=== PATIENT | male | born 1970 | race American Indian/Alaskan Native ===

== ENCOUNTER 2016-06-10 19:40 | Emergency (ER) | payer SELFPAY ==
[2016-06-10 20:48] VITALS: BP 137/93
--- NOTE | 2016-06-10 21:36 | Emergency Department Report ---
Chief Complaint: Dental/Oral Stated Complaint: EAR/MOUTH PAIN, FEET SWELLING Time Seen by Provider: 06/10/16 21:27 - HPI History of Present Illness: Patient presents with left tooth pain that he states is radiating to his left ear. He admits to dizziness, swelling in bilateral lower extremities. Denies chest pain, sob and yuly. He also admits to gout flare in right heal. - ROS Review of Systems: All other systems unremarkable except documentation in HPI - Exam Vital Signs: Vital Signs 06/10/16 20:42 Temperature 98.2 F Pulse Rate 56 L Respiratory 20 Rate Blood Pressure 137/93 O2 Sat by Pulse 98 Oximetry Physical Exam: Gen: Male well-developed and nourished, no apparent distress noted, ambulatory. Cardiovascular: Heart sounds present S1-S2, no murmur, gallop, edema or ectopy noted, 2+ pulses upper and lower extremities Respiratory: Chest symmetry with respirations, lungs clear to auscultate upper and lower lobes, respirations even and unlabored, no rales, rhonchi, crackles noted. Psych: AxOx3, answers questions appropriately, mood full range, affect normal, normal speech and tone. MSE screening note: Focused history and physical exam performed. Due to findings the following was ordered: seen by provider, laboratory and radiology studies ordered, and to go to main ED to be seen by physician ED Medical Decision Making - Medical Decision Making seen by provider, laboratory and radiology studies ordered, and to go to main ED to be seen by physician ED Disposition for MSE Condition: Stable Referrals: PRIMARY CAREMD [Primary Care Provider] - 3-5 Days
[2016-06-10 22:22] LABS: Basophils % (Auto) 0.6 % (0.0-1.8); Eosinophils % (Auto) 4.1 % (0.0-4.3); Hematocrit 40.7 % (35.5-45.6); Hemoglobin 13.8 gm/dl (11.8-15.2); Mean Corpuscular HGB Conc 34 % (32-34); Mean Corpuscular Hemoglobin 32 pg (28-32); Mean Corpuscular Volume 93 fl (84-94); Platelet Count 216 K/mm3 (140-440); Red Blood Count 4.36 M/mm3 (3.65-5.03); Red Cell Distribution Width 15.1 % (13.2-15.2); White Blood Count 9.7 K/mm3 (4.5-11.0)
[2016-06-10 22:38] LABS: Alanine Aminotransferase 27 units/L (7-56); Albumin 3.9 g/dL (3.9-5); Albumin/Globulin Ratio 1.2 %; Alkaline Phosphatase 63 units/L (35-129); Anion Gap 15 mmol/L; BUN/Creatinine Ratio 15.55; Bilirubin,Total 0.2 mg/dL (0.1-1.2); Blood Urea Nitrogen 14 mg/dL (9-20); Carbon Dioxide 28 mmol/L (22-30); Chloride 98.8 mmol/L (98-107); Glucose 104 mg/dL (75-100); Potassium 3.9 mmol/L (3.6-5.0); Sodium 138 mmol/L (137-145); Total Protein 7.2 g/dL (6.3-8.2)
[2016-06-10 23:08] LABS: Uric Acid 10.7 mg/dL (3.5-7.6)
[2016-06-11 00:24] LABS: Bilirubin,Urine NEG (Negative); Blood,Urine SM (Negative); Ketones,Urine NEG (Negative); Leukocyte Esterase,Urine NEG (Negative); Mucus,Urine FEW /HPF; Nitrite,Urine NEG (Negative); Urobilinogen,Urine < 2.0 mg/dL (<2.0)
== END 2016-06-11 05:40 | disposition left against medical advice (07) ==
LOC: ED 19:40
DX: K13.79 Other lesions of oral mucosa (principal); Z53.21 Procedure and treatment not carried out due to patient leaving prior to being seen by health care provider
CPT/HCPCS: 36415; 80053; 81001; 84484; 84550; 85025; 93005; 93010

== ENCOUNTER 2017-07-30 23:59 | Inpatient (IN) | payer OTHER ==
[2017-07-31] MEDS ORDERED: NACL 0.9% 1000 ML 1,000 ML IV ONE ×2 (00:21→02:23)
[2017-07-31] MEDS ORDERED: ZOFRAN IV ONE (00:48)
[2017-07-31] MEDS ORDERED: PROTONIX IV ONE (00:48)
[2017-07-31 00:51] LABS: Hematocrit 28.1 % (35.5-45.6); Hemoglobin 9.5 gm/dl (11.8-15.2); Mean Corpuscular HGB Conc 34 % (32-34); Mean Corpuscular Hemoglobin 32 pg (28-32); Mean Corpuscular Volume 95 fl (84-94); Platelet Count 232 K/mm3 (140-440); Red Blood Count 2.95 M/mm3 (3.65-5.03); Red Cell Distribution Width 15.6 % (13.2-15.2)
--- NOTE | 2017-07-31 00:55 | Emergency Department Report ---
ED GI Bleed HPI - General Chief complaint: GI Bleed Stated complaint: GI BLEED Time Seen by Provider: 07/31/17 00:43 Source: patient, EMS Mode of arrival: Stretcher Limitations: No Limitations - History of Present Illness Initial comments: Patient is 46 years old male with history of hypertension. Patient presented to the ER complaining OF epigastric pain and vomiting coffee ground emesis and passing dark stool. Patient stated that his symptoms started yesterday. He also reported that he was diagnosed with peptic ulcer before. He denied any fever, chest pain or shortness of breath. Patient initial blood pressure in the ER is 82/52. IV lines immediately inserted and IV fluids started. MD complaint: coffee ground emesis, melena -: Last night Location: epigastric Radiation: none Consistency: intermittent Associated Symptoms: abdominal pain, nausea, vomiting - Related Data Previous Rx's Medication Instructions Recorded Last Taken Type Amoxicillin/K Clav Tab [Augmentin 1 tab PO Q12HR #20 tab 11/25/15 Unknown Rx 875 mg] Cyclobenzaprine [Flexeril] 10 mg PO TID PRN #20 tablet 11/25/15 Unknown Rx Ibuprofen [Motrin 800 MG tab] 800 mg PO Q8HR PRN #30 tablet 11/25/15 Unknown Rx Lisinopril [Zestril TAB] 20 mg PO QDAY #30 tablet 11/25/15 Unknown Rx Losartan [Cozaar] 50 mg PO QDAY #30 tablet 11/25/15 Unknown Rx Allergies Allergy/AdvReac Type Severity Reaction Status Date / Time No Known Allergies Allergy Verified 06/10/16 20:47 ED Review of Systems ROS: Stated complaint: GI BLEED Other details as noted in HPI Comment: All other systems reviewed and negative ENT: denies: throat pain Respiratory: denies: cough, orthopnea, shortness of breath, SOB with exertion Cardiovascular: denies: chest pain, palpitations Gastrointestinal: abdominal pain, nausea, vomiting, melena ED Past Medical Hx - Past Medical History Previous Medical History?: Yes Hx Hypertension: Yes Hx CVA: No Hx Heart Attack/AMI: No Hx Congestive Heart Failure: No Hx Diabetes: No Hx Deep Vein Thrombosis: No Hx Pulmonary Embolism: No Hx GERD: Yes Hx Liver Disease: No Hx Renal Disease: No Hx Sickle Cell Disease: No Hx Arthritis: Yes (GOUT) Hx Headaches / Migraines: No Hx Seizures: No Hx Kidney Stones: No Hx Psychiatric Treatment: No Hx Asthma: No Hx COPD: No Hx Tuberculosis: No Hx Dementia: No Hx HIV: No - Surgical History Past Surgical History?: Yes Hx Coronary Stent: Yes Hx Open Heart Surgery: No Hx Pacemaker: No Hx Internal Defibrillator: No Hx Cholecystectomy: No Hx Appendectomy: No Hx Breast Surgery: No - Social History Smoking Status: Former Smoker Substance Use Type: Prescribed - Medications Home Medications: Home Medications Medication Instructions Recorded Confirmed Last Taken Type Amoxicillin/K Clav Tab [Augmentin 1 tab PO Q12HR #20 tab 11/25/15 Unknown Rx 875 mg] Cyclobenzaprine [Flexeril] 10 mg PO TID PRN #20 tablet 11/25/15 Unknown Rx Ibuprofen [Motrin 800 MG tab] 800 mg PO Q8HR PRN #30 tablet 11/25/15 Unknown Rx Lisinopril [Zestril TAB] 20 mg PO QDAY #30 tablet 11/25/15 Unknown Rx Losartan [Cozaar] 50 mg PO QDAY #30 tablet 11/25/15 Unknown Rx ED Physical Exam - General Limitations: No Limitations General appearance: alert, in no apparent distress - Head Head exam: Present: atraumatic, normocephalic - ENT ENT exam: Present: mucous membranes dry - Neck Neck exam: Present: normal inspection, full ROM. Absent: tenderness, meningismus, lymphadenopathy - Respiratory Respiratory exam: Present: normal lung sounds bilaterally. Absent: respiratory distress, wheezes, rales, rhonchi, stridor, accessory muscle use, decreased breath sounds, prolonged expiratory - Cardiovascular Cardiovascular Exam: Present: regular rate, normal rhythm, normal heart sounds - GI/Abdominal GI/Abdominal exam: Present: soft, tenderness (epigastric tenderness), normal bowel sounds. Absent: distended, guarding, rebound, rigid, organomegaly, mass, bruit, pulsatile mass, hernia - Extremities Exam Extremities exam: Present: normal inspection, full ROM, normal capillary refill - Back Exam Back exam: Present: normal inspection, full ROM - Neurological Exam Neurological exam: Present: alert, oriented X3, CN II-XII intact, normal gait - Skin Skin exam: Present: warm, intact, normal color ED Course Vital Signs 07/31/17 00:01 Temperature 97.8 F Pulse Rate 77 Respiratory 16 Rate Blood Pressure 82/52 O2 Sat by Pulse 100 Oximetry - Reevaluation(s) Reevaluation #1: 07/31/17 02:26 Patient blood pressure improved after 1 L of fluids. I discussed the patient is Dr. Conner Soliman from gastroenterology. Dr. Soliman advised to admit the patient to the hospitalists, keep patient nothing by mouth for possible endoscopy in the morning. ED Medical Decision Making - Lab Data Result diagrams: 07/31/17 00:26 07/31/17 00:26 - Medical Decision Making I discussed the patient with Dr. Mittal, he agreed to admit the patient to his service. Critical Care Time: Yes Critical care time in (mins) excluding proc time.: 30 Critical care attestation.: If time is entered above; I have spent that time in minutes in the direct care of this critically ill patient, excluding procedure time. ED Disposition Clinical Impression: GI bleed, Hypotension due to blood loss Disposition: OP ADMIT IP TO THIS HOSP Is pt being admited?: Yes Condition: Stable Forms: Accompanied Note
[2017-07-31] MEDS ORDERED: PROTONIX 80 MG in NACL 0.9% 100 ML IV SCH (01:00)
[2017-07-31 01:04] LABS: INR 0.99 (0.87-1.13)
[2017-07-31 01:05] LABS: Partial Thromboplastin Time 25.8 Sec. (24.2-36.6)
[2017-07-31 01:36] LABS: Alanine Aminotransferase 24 units/L (7-56); Albumin 3.2 g/dL (3.9-5); BUN/Creatinine Ratio 48; Blood Urea Nitrogen 48 mg/dL (9-20); Calcium 7.9 mg/dL (8.4-10.2); Hemolysis Index 6; Lipase 18 units/L (13-60)
[2017-07-31 04:39] LABS: Anisocytosis 1+; Band Neutrophils # (Manual) 0.2 K/mm3; Basophils % (Manual) 0 % (0.0-1.8); Monocytes % (Manual) 0 % (0.0-7.3); Stomatocytes Rare; Total Cells Counted 100
--- NOTE | 2017-07-31 09:00 | Gastroenterology Consultation ---
<SUSHIL JAMISON BLOSSOM - Last Filed: 07/31/17 08:52> History of Present Illness - Reason for Consult Consult date: 07/31/17 Melena Requesting physician: SONJA CHUA - History of Present Illness Mr. Cullen is a 46 y/o male admitted for a 1 week hx of melena with associated N/V, CGE, and back pain. The patient does note chronic back pain. He endorses taking baby ASA daily along with ibuprofen, and Aleve for leg cramping and back pain for several months. He denies abdominal pain. He has weakness and fatigue. No prior GI hx. No prior EGD. He states he has had an irregular HR in the past and underwent LHC with no intervention/ medical management. He has a hx of HTN. Currently on a PPI gtt. Past History Past Medical History: hypertension Past Surgical History: No surgical history Social history: , lives with family. denies: alcohol abuse Family history: hypertension Medications and Allergies Allergies Allergy/AdvReac Type Severity Reaction Status Date / Time No Known Allergies Allergy Verified 06/10/16 20:47 Home Medications Medication Instructions Recorded Confirmed Last Taken Type Lisinopril [Zestril TAB] 20 mg PO QDAY #30 tablet 11/25/15 07/31/17 Unknown Rx Losartan [Cozaar] 50 mg PO QDAY #30 tablet 11/25/15 07/31/17 Unknown Rx Furosemide [Lasix] 20 mg PO QDAY 07/31/17 07/31/17 Unknown History Active Meds: Active Medications Pantoprazole Sodium 80 mg/ (Sodium Chloride) 100 mls @ 10 mls/hr IV DIRECT SAMIR Last Admin: 07/31/17 01:23 Dose: 8 mg/hr, 10 mls/hr Review of Systems - Review of Systems All systems: negative Constitutional: fatigue, weakness Cardiovascular: shortness of breath Gastrointestinal: nausea, vomiting, coffee ground emesis, melena Exam - Constitutional Vital Signs: Temp Pulse Resp BP Pulse Ox 97.8 F 100 H 22 122/69 99 07/31/17 00:01 07/31/17 08:30 07/31/17 08:30 07/31/17 08:30 07/31/17 04:45 General appearance: no acute distress - EENT Eyes: EOM intact ENT: hearing intact - Neck Neck: supple - Respiratory Respiratory: bilateral: CTA - Cardiovascular Rhythm: regular Extremities: pulses intact - Gastrointestinal General gastrointestinal: Present: soft, non-tender, normal bowel sounds - Integumentary Integumentary: Present: warm, dry - Neurologic Neurological: alert and oriented x3 - Psychiatric Psychiatric: appropriate mood/affect, cooperative - Labs CBC & Chem 7: 07/31/17 00:26 07/31/17 00:26 Lab Results: Laboratory Results - last 24 hr 07/31/17 07/31/17 07/31/17 00:26 00:26 00:26 WBC 15.1 H RBC 2.95 L Hgb 9.5 L Hct 28.1 L MCV 95 H MCH 32 MCHC 34 RDW 15.6 H Plt Count 232 Lymph # Utility Worker Add Manual Diff Complete Total Counted 100 Seg Neuts % (Manual) 86.0 H Band Neutrophils % 1.0 Lymphocytes % (Manual) 11.0 L Reactive Lymphs % (Man) 0 Monocytes % (Manual) 0 Eosinophils % (Manual) 2.0 Basophils % (Manual) 0 Metamyelocytes % 0 Myelocytes % 0 Promyelocytes % 0 Blast Cells % 0 Nucleated RBC % Not Reportable Seg Neutrophils # Man 13.0 H Band Neutrophils # 0.2 Lymphocytes # (Manual) 1.7 Abs React Lymphs (Man) 0.0 Monocytes # (Manual) 0.0 Eosinophils # (Manual) 0.3 Basophils # (Manual) 0.0 Metamyelocytes # 0.0 Myelocytes # 0.0 Promyelocytes # 0.0 Blast Cells # 0.0 WBC Morphology Not Reportable Hypersegmented Neuts Not Reportable Hyposegmented Neuts Not Reportable Hypogranular Neuts Not Reportable Smudge Cells Not Reportable Toxic Granulation Not Reportable Toxic Vacuolation Not Reportable Dohle Bodies Not Reportable Pelger-Huet Anomaly Not Reportable Marty Rods Not Reportable Platelet Estimate Appears normal Clumped Platelets Not Reportable Plt Clumps, EDTA Not Reportable Large Platelets Not Reportable Giant Platelets Not Reportable Platelet Satelliting Not Reportable Plt Morphology Comment Not Reportable RBC Morphology Not Reportable Dimorphic RBCs Not Reportable Polychromasia Not Reportable Hypochromasia Not Reportable Poikilocytosis Not Reportable Anisocytosis 1+ Microcytosis Not Reportable Macrocytosis Not Reportable Spherocytes Not Reportable Pappenheimer Bodies Not Reportable Sickle Cells Not Reportable Target Cells Not Reportable Tear Drop Cells Not Reportable Ovalocytes Not Reportable Stomatocytes Rare Helmet Cells Not Reportable [place] Bodies Not Reportable [place] Rings Not Reportable [place] Cells Not Reportable Bite Cells Not Reportable Crenated Cell Not Reportable Elliptocytes Not Reportable Acanthocytes (Spur) Not Reportable Rouleaux Not Reportable Hemoglobin C Crystals Not Reportable Schistocytes Not Reportable Malaria parasites Not Reportable Charlie Bodies Not Reportable Hem Pathologist Commnt No PT 13.6 INR 0.99 APTT 25.8 Sodium 141 Potassium 4.0 Chloride 106.1 Carbon Dioxide 21 L Anion Gap 18 BUN 48 H Creatinine 1.0 Estimated GFR > 60 BUN/Creatinine Ratio 48 Glucose 132 H Calcium 7.9 L Total Bilirubin < 0.20 AST 19 ALT 24 Alkaline Phosphatase 40 Total Protein 5.7 L Albumin 3.2 L Albumin/Globulin Ratio 1.3 Lipase 18 Blood Type Antibody Screen 07/31/17 00:28 WBC RBC Hgb Hct MCV MCH MCHC RDW Plt Count Lymph # Add Manual Diff Total Counted Seg Neuts % (Manual) Band Neutrophils % Lymphocytes % (Manual) Reactive Lymphs % (Man) Monocytes % (Manual) Eosinophils % (Manual) Basophils % (Manual) Metamyelocytes % Myelocytes % Promyelocytes % Blast Cells % Nucleated RBC % Seg Neutrophils # Man Band Neutrophils # Lymphocytes # (Manual) Abs React Lymphs (Man) Monocytes # (Manual) Eosinophils # (Manual) Basophils # (Manual) Metamyelocytes # Myelocytes # Promyelocytes # Blast Cells # WBC Morphology Hypersegmented Neuts Hyposegmented Neuts Hypogranular Neuts Smudge Cells Toxic Granulation Toxic Vacuolation Dohle Bodies Pelger-Huet Anomaly Marty Rods Platelet Estimate Clumped Platelets Plt Clumps, EDTA Large Platelets Giant Platelets Platelet Satelliting Plt Morphology Comment RBC Morphology Dimorphic RBCs Polychromasia Hypochromasia Poikilocytosis Anisocytosis Microcytosis Macrocytosis Spherocytes Pappenheimer Bodies Sickle Cells Target Cells Tear Drop Cells Ovalocytes Stomatocytes Helmet Cells [place] Bodies [place] Rings [place] Cells Bite Cells Crenated Cell Elliptocytes Acanthocytes (Spur) Rouleaux Hemoglobin C Crystals Schistocytes Malaria parasites Charlie Bodies Hem Pathologist Commnt PT INR APTT Sodium Potassium Chloride Carbon Dioxide Anion Gap BUN Creatinine Estimated GFR BUN/Creatinine Ratio Glucose Calcium Total Bilirubin AST ALT Alkaline Phosphatase Total Protein Albumin Albumin/Globulin Ratio Lipase Blood Type O POSITIVE Antibody Screen Negative Assessment and Plan 1. Melena 2 .CGE 3. NSAID use -Continue PPI gtt. NPO -No NSAIDS or blood thinning meds -H/H stable, BUN elevated -Pt reports taking baby ASA, Ibuprofen, Aleve daily -EGD today. -Hypotension is improving. B/P currently 122/68-S/P fluid bolus. -Further recommendations to follow EGD <MICHAEL DIAZ R - Last Filed: 07/31/17 11:01> Medications and Allergies Active Meds: Active Medications Pantoprazole Sodium 80 mg/ (Sodium Chloride) 100 mls @ 10 mls/hr IV DIRECT SAMIR Last Admin: 07/31/17 01:23 Dose: 8 mg/hr, 10 mls/hr Sodium Chloride (Nacl 0.9% 1000 Ml) 1,000 mls @ 50 mls/hr IV DIRECT SAMIR Last Admin: 07/31/17 10:22 Dose: 50 mls/hr Exam - Constitutional Vital Signs: Temp Pulse Resp BP Pulse Ox 99.2 F 89 12 97/53 98 07/31/17 10:18 07/31/17 10:18 07/31/17 10:18 07/31/17 10:18 07/31/17 10:18 - Labs CBC & Chem 7: 07/31/17 00:26 07/31/17 00:26 Lab Results: Laboratory Results - last 24 hr 07/31/17 07/31/17 07/31/17 00:26 00:26 00:26 WBC 15.1 H RBC 2.95 L Hgb 9.5 L Hct 28.1 L MCV 95 H MCH 32 MCHC 34 RDW 15.6 H Plt Count 232 Lymph # Utility Worker Add Manual Diff Complete Total Counted 100 Seg Neuts % (Manual) 86.0 H Band Neutrophils % 1.0 Lymphocytes % (Manual) 11.0 L Reactive Lymphs % (Man) 0 Monocytes % (Manual) 0 Eosinophils % (Manual) 2.0 Basophils % (Manual) 0 Metamyelocytes % 0 Myelocytes % 0 Promyelocytes % 0 Blast Cells % 0 Nucleated RBC % Not Reportable Seg Neutrophils # Man 13.0 H Band Neutrophils # 0.2 Lymphocytes # (Manual) 1.7 Abs React Lymphs (Man) 0.0 Monocytes # (Manual) 0.0 Eosinophils # (Manual) 0.3 Basophils # (Manual) 0.0 Metamyelocytes # 0.0 Myelocytes # 0.0 Promyelocytes # 0.0 Blast Cells # 0.0 WBC Morphology Not Reportable Hypersegmented Neuts Not Reportable Hyposegmented Neuts Not Reportable Hypogranular Neuts Not Reportable Smudge Cells Not Reportable Toxic Granulation Not Reportable Toxic Vacuolation Not Reportable Dohle Bodies Not Reportable Pelger-Huet Anomaly Not Reportable Marty Rods Not Reportable Platelet Estimate Appears normal Clumped Platelets Not Reportable Plt Clumps, EDTA Not Reportable Large Platelets Not Reportable Giant Platelets Not Reportable Platelet Satelliting Not Reportable Plt Morphology Comment Not Reportable RBC Morphology Not Reportable Dimorphic RBCs Not Reportable Polychromasia Not Reportable Hypochromasia Not Reportable Poikilocytosis Not Reportable Anisocytosis 1+ Microcytosis Not Reportable Macrocytosis Not Reportable Spherocytes Not Reportable Pappenheimer Bodies Not Reportable Sickle Cells Not Reportable Target Cells Not Reportable Tear Drop Cells Not Reportable Ovalocytes Not Reportable Stomatocytes Rare Helmet Cells Not Reportable [place] Bodies Not Reportable [place] Rings Not Reportable [place] Cells Not Reportable Bite Cells Not Reportable Crenated Cell Not Reportable Elliptocytes Not Reportable Acanthocytes (Spur) Not Reportable Rouleaux Not Reportable Hemoglobin C Crystals Not Reportable Schistocytes Not Reportable Malaria parasites Not Reportable Charlie Bodies Not Reportable Hem Pathologist Commnt No PT 13.6 INR 0.99 APTT 25.8 Sodium 141 Potassium 4.0 Chloride 106.1 Carbon Dioxide 21 L Anion Gap 18 BUN 48 H Creatinine 1.0 Estimated GFR > 60 BUN/Creatinine Ratio 48 Glucose 132 H Calcium 7.9 L Total Bilirubin < 0.20 AST 19 ALT 24 Alkaline Phosphatase 40 Total Protein 5.7 L Albumin 3.2 L Albumin/Globulin Ratio 1.3 Lipase 18 Blood Type Antibody Screen 07/31/17 00:28 WBC RBC Hgb Hct MCV MCH MCHC RDW Plt Count Lymph # Add Manual Diff Total Counted Seg Neuts % (Manual) Band Neutrophils % Lymphocytes % (Manual) Reactive Lymphs % (Man) Monocytes % (Manual) Eosinophils % (Manual) Basophils % (Manual) Metamyelocytes % Myelocytes % Promyelocytes % Blast Cells % Nucleated RBC % Seg Neutrophils # Man Band Neutrophils # Lymphocytes # (Manual) Abs React Lymphs (Man) Monocytes # (Manual) Eosinophils # (Manual) Basophils # (Manual) Metamyelocytes # Myelocytes # Promyelocytes # Blast Cells # WBC Morphology Hypersegmented Neuts Hyposegmented Neuts Hypogranular Neuts Smudge Cells Toxic Granulation Toxic Vacuolation Dohle Bodies Pelger-Huet Anomaly Marty Rods Platelet Estimate Clumped Platelets Plt Clumps, EDTA Large Platelets Giant Platelets Platelet Satelliting Plt Morphology Comment RBC Morphology Dimorphic RBCs Polychromasia Hypochromasia Poikilocytosis Anisocytosis Microcytosis Macrocytosis Spherocytes Pappenheimer Bodies Sickle Cells Target Cells Tear Drop Cells Ovalocytes Stomatocytes Helmet Cells [place] Bodies [place] Rings Kerwin Cells Bite Cells Crenated Cell Elliptocytes Acanthocytes (Spur) Rouleaux Hemoglobin C Crystals Schistocytes Malaria parasites Charlie Bodies Hem Pathologist Commnt PT INR APTT Sodium Potassium Chloride Carbon Dioxide Anion Gap BUN Creatinine Estimated GFR BUN/Creatinine Ratio Glucose Calcium Total Bilirubin AST ALT Alkaline Phosphatase Total Protein Albumin Albumin/Globulin Ratio Lipase Blood Type O POSITIVE Antibody Screen Negative Assessment and Plan Pt gives hx of many years of dyspepsia, and went to [facility] ER several years ago, and was told he might have PUD. Likely PUD. Will do EGD.
[2017-07-31] MEDS ORDERED: XYLOCAINE MPF 2% ONE (10:00)
[2017-07-31] MEDS ORDERED: WATER FOR IRRIG STERILE IR ONE (10:19)
--- NOTE | 2017-07-31 10:20 | Consultation ---
History of Present Illness Consult date: 07/31/17 Requesting physician: SONJA CHUA Past History Past Medical History: hypertension Past Surgical History: No surgical history Social history: , lives with family. denies: alcohol abuse Family history: hypertension Medications and Allergies Allergies Allergy/AdvReac Type Severity Reaction Status Date / Time No Known Allergies Allergy Verified 06/10/16 20:47 Home Medications Medication Instructions Recorded Confirmed Last Taken Type Lisinopril [Zestril TAB] 20 mg PO QDAY #30 tablet 11/25/15 07/31/17 Unknown Rx Losartan [Cozaar] 50 mg PO QDAY #30 tablet 11/25/15 07/31/17 Unknown Rx Furosemide [Lasix] 20 mg PO QDAY 07/31/17 07/31/17 Unknown History Active Meds: Active Medications Pantoprazole Sodium 80 mg/ (Sodium Chloride) 100 mls @ 10 mls/hr IV DIRECT SAMIR Last Admin: 07/31/17 01:23 Dose: 8 mg/hr, 10 mls/hr Sodium Chloride (Nacl 0.9% 1000 Ml) 1,000 mls @ 50 mls/hr IV DIRECT SAMIR Physical Examination Vital signs: Vital Signs Temp Pulse Resp BP Pulse Ox 97.8 F 77 16 82/52 100 07/31/17 00:01 07/31/17 00:01 07/31/17 00:01 07/31/17 00:01 07/31/17 00:01 Results - Laboratory Findings CBC and BMP: 07/31/17 00:26 07/31/17 00:26 PT/INR, D-dimer PT 13.6 Sec. (12.2-14.9) 07/31/17 00:26 INR 0.99 (0.87-1.13) 07/31/17 00:26 Abnormal lab findings: Abnormal Labs 07/31/17 07/31/17 00:26 00:26 WBC 15.1 H RBC 2.95 L Hgb 9.5 L Hct 28.1 L MCV 95 H RDW 15.6 H Seg Neuts % (Manual) 86.0 H Lymphocytes % (Manual) 11.0 L Seg Neutrophils # Man 13.0 H Carbon Dioxide 21 L BUN 48 H Glucose 132 H Calcium 7.9 L Total Protein 5.7 L Albumin 3.2 L
[2017-07-31] MEDS: NACL 0.9% 1000 ML 1,000 ML IV SCH ×2 (10:22→22:46)
--- NOTE | 2017-07-31 10:41 | Anesthesia Day of Surgery ---
Anesthesia Day of Surgery - Day of Surgery Patient Examined: Yes Patient H&P Reviewed: Yes Patient is NPO: Yes
--- NOTE | 2017-07-31 10:41 | Anesthesia Consultation ---
Anesthesia Consult and Med Hx Date of service: 07/31/17 - Airway Anesthetic Teeth Evaluation: Poor, Caps (few cutler caps ), Crowns ROM Head & Neck: Adequate Mental/Hyoid Distance: Adequate Mallampati Class: Class III Intubation Access Assessment: Possibly Difficult - Pre-Operative Health Status ASA Pre-Surgery Classification: ASA3, Emergency Proposed Anesthetic Plan: MAC - Pulmonary Hx Smoking: Yes Hx Asthma: No COPD: No - Cardiovascular System Hx Hypertension: Yes Hx Heart Attack/AMI: No Hx Pacemaker: No Hx Internal Defibrillator: No - Central Nervous System Hx Seizures: No Hx Back Pain: Yes (gout) - Gastrointestinal Hx Ulcer: Yes (acute GI bleed) - Endocrine Hx Renal Disease: No Hx Liver Disease: No - Hematic Hx Sickle Cell Disease: No - Other Systems Hx Obesity: Yes (BMI 45.6)
[2017-07-31] MEDS ORDERED: DIPRIVAN 10 MG/ML IV ONE ×2 (10:46)
--- NOTE | 2017-07-31 11:04 | Post Operative Note ---
Pre-op diagnosis: GI bleed Post-op diagnosis: other (Duodenal bulb ulcer with no stigmata) Findings: 1. Normal esophagus and stomach. 2. Duodenal bulb deformity, with acute, 1 cm, white based ulcer noted at apex with no stigmata of bleeding. Procedure: EGD with bx Anesthesia: MAC Surgeon: MICHAEL DIAZ Estimated blood loss: none Pathology: list (Antral biopsy) Specimen disposition: to lab Condition: stable Disposition: floor (Chronic PPI, clear liquid diet, f/u pathology)
--- NOTE | 2017-07-31 11:24 | Operative Report ---
PROCEDURE: Upper endoscopy with biopsy. PREOPERATIVE DIAGNOSIS: Gastrointestinal bleed. POSTOPERATIVE DIAGNOSIS: Duodenal bulb ulcer. SEDATION: MAC by Anesthesia. HISTORY: The patient is a 46-year-old man with a longstanding history of dyspepsia and chronic NSAID use. He presents with a 1-week history of melena and one episode of coffee-ground emesis. He has hemoglobin of 9.5. Procedure, indications, risks, and benefits were explained and consent was obtained. The patient was placed in left lateral decubitus position. Timetric video upper scope was passed through the mouth and oropharynx into the descending duodenum. Scope was then gradually withdrawn with close inspection of the mucosa. FINDINGS: 1. Normal-appearing esophagus with sharp Z-line located at 40 cm from the incisors. 2. Normal-appearing gastric antrum, fundus, body, and cardia. 3. Duodenal bulb has a 1 cm white-based ulcer at the apex with no stigmata of bleeding. There are some duodenal bulb deformities consistent with prior peptic ulcer disease. There is no blood noted in the GI tract. 4. Antral biopsies obtained for H. pylori. The patient tolerated the procedure well without immediate complication. IMPRESSION: 1. Duodenal bulb ulcer -- likely source of bleeding. No stigmata noted. 2. Duodenal bulb deformity consistent with prior peptic ulcer disease. 3. Otherwise, normal upper endoscopy. 4. Antral biopsies obtained. PLAN: 1. Follow up biopsies. 2. Monitor H and H and transfuse if needed. 3. May advance to clear liquid diet. 4. If remains stable, can discharge to home in a.m. on chronic proton pump inhibitors and outpatient followup. JOB# [id number] HRC/NTS
--- NOTE | 2017-07-31 12:11 | History and Physical Report ---
History of Present Illness Date of examination: 07/31/17 Date of admission: 07/31/17 02:24 Chief complaint: Coffee-ground emesis History of present illness: Patient is a 46 year old -[place] male who presented with a day history of coffee-ground emesis. He stated that he had been having dark tarry stool and upper abdominal pain for the past 1 week. He also admitted to palpitation, shortness of breath, back pain, generalized weakness, dizziness and a syncopal episode. He denies chest pain, diaphoresis, fever, chills, leg swelling, orthopnea or PND. No dysuria or frequency. Past History Past Medical History: hypertension Past Surgical History: No surgical history Social history: , lives with family, other (he admits to occasional alcohol use. He denies tobacco or illicit drug use) Family history: hypertension Medications and Allergies Allergies Allergy/AdvReac Type Severity Reaction Status Date / Time No Known Allergies Allergy Verified 06/10/16 20:47 Home Medications Medication Instructions Recorded Confirmed Last Taken Type Lisinopril [Zestril TAB] 20 mg PO QDAY #30 tablet 11/25/15 07/31/17 Unknown Rx Losartan [Cozaar] 50 mg PO QDAY #30 tablet 11/25/15 07/31/17 Unknown Rx Furosemide [Lasix] 20 mg PO QDAY 07/31/17 07/31/17 Unknown History Active Meds: Active Medications Pantoprazole Sodium 80 mg/ (Sodium Chloride) 100 mls @ 10 mls/hr IV DIRECT SAMIR Last Admin: 07/31/17 01:23 Dose: 8 mg/hr, 10 mls/hr Sodium Chloride (Nacl 0.9% 1000 Ml) 1,000 mls @ 50 mls/hr IV DIRECT SAMIR Last Admin: 07/31/17 10:22 Dose: 50 mls/hr Review of Systems All systems: negative (except as documented in the HPI, all other systems were reviewed and negative.) Exam - Constitutional Vitals: Temp Pulse Resp BP Pulse Ox 99.2 F 98 H 18 111/70 98 07/31/17 11:01 07/31/17 11:31 07/31/17 11:31 07/31/17 11:31 07/31/17 11:31 General appearance: Present: no acute distress - EENT Eyes: Present: PERRL, EOM intact ENT: hearing intact, clear oral mucosa - Neck Neck: Present: supple - Respiratory Respiratory effort: normal Respiratory: bilateral: CTA - Cardiovascular Rhythm: regular Heart Sounds: Present: S1 & S2 - Extremities Extremities: pulses symmetrical, No edema Peripheral Pulses: within normal limits - Abdominal General gastrointestinal: Present: soft, tender (epigastric), normal bowel sounds - Integumentary Integumentary: Present: warm, dry - Musculoskeletal Musculoskeletal: strength equal bilaterally - Psychiatric Psychiatric: appropriate mood/affect - Neurologic Neurologic: CNII-XII intact Results - Labs CBC & Chem 7: 07/31/17 00:26 07/31/17 00:26 Labs: Laboratory Last Values WBC 15.1 K/mm3 (4.5-11.0) H 07/31/17 00:26 RBC 2.95 M/mm3 (3.65-5.03) L 07/31/17 00:26 Hgb 9.5 gm/dl (11.8-15.2) L 07/31/17 00: Hct 28.1 % (35.5-45.6) L 07/31/17 00: MCV 95 fl (84-94) H 07/31/17 00:26 MCH 32 pg (28-32) 07/31/17 00:26 MCHC 34 % (32-34) 07/31/17 00:26 RDW 15.6 % (13.2-15.2) H 07/31/17 00:26 Plt Count 232 K/mm3 (140-440) 07/31/17 00:26 Lymph # Online Marketing Specialist 07/31/17 00:26 Add Manual Diff Complete 07/31/17 00:26 Total Counted 100 07/31/17 00:26 Seg Neuts % (Manual) 86.0 % (40.0-70.0) H 07/31/17 00:26 Band Neutrophils % 1.0 % 07/31/17 00:26 Lymphocytes % (Manual) 11.0 % (13.4-35.0) L 07/31/17 00:26 Reactive Lymphs % (Man) 0 % 07/31/17 00: Monocytes % (Manual) 0 % (0.0-7.3) 07/31/17 00: Eosinophils % (Manual) 2.0 % (0.0-4.3) 07/31/17 00:26 Basophils % (Manual) 0 % (0.0-1.8) 07/31/17 00:26 Metamyelocytes % 0 % 07/31/17 00: Myelocytes % 0 % 07/31/17 00:26 Promyelocytes % 0 % 07/31/17 00:26 Blast Cells % 0 % 07/31/17 00:26 Nucleated RBC % Not Reportable 07/31/17 00:26 Seg Neutrophils # Man 13.0 K/mm3 (1.8-7.7) H 07/31/17 00:26 Band Neutrophils # 0.2 K/mm3 07/31/17 00:26 Lymphocytes # (Manual) 1.7 K/mm3 (1.2-5.4) 07/31/17 00:26 Abs React Lymphs (Man) 0.0 K/mm3 07/31/17 00:26 Monocytes # (Manual) 0.0 K/mm3 (0.0-0.8) 07/31/17 00:26 Eosinophils # (Manual) 0.3 K/mm3 (0.0-0.4) 07/31/17 00:26 Basophils # (Manual) 0.0 K/mm3 (0.0-0.1) 07/31/17 00:26 Metamyelocytes # 0.0 K/mm3 07/31/17 00:26 Myelocytes # 0.0 K/mm3 07/31/17 00:26 Promyelocytes # 0.0 K/mm3 07/31/17 00:26 Blast Cells # 0.0 K/mm3 07/31/17 00:26 WBC Morphology Not Reportable 07/31/17 00:26 Hypersegmented Neuts Not Reportable 07/31/17 00:26 Hyposegmented Neuts Not Reportable 07/31/17 00:26 Hypogranular Neuts Not Reportable 07/31/17 00:26 Smudge Cells Not Reportable 07/31/17 00:26 Toxic Granulation Not Reportable 07/31/17 00:26 Toxic Vacuolation Not Reportable 07/31/17 00:26 Dohle Bodies Not Reportable 07/31/17 00:26 Pelger-Huet Anomaly Not Reportable 07/31/17 00:26 Marty Rods Not Reportable 07/31/17 00:26 Platelet Estimate Appears normal 07/31/17 00:26 Clumped Platelets Not Reportable 07/31/17 00:26 Plt Clumps, EDTA Not Reportable 07/31/17 00:26 Large Platelets Not Reportable 07/31/17 00:26 Giant Platelets Not Reportable 07/31/17 00:26 Platelet Satelliting Not Reportable 07/31/17 00:26 Plt Morphology Comment Not Reportable 07/31/17 00:26 RBC Morphology Not Reportable 07/31/17 00:26 Dimorphic RBCs Not Reportable 07/31/17 00:26 Polychromasia Not Reportable 07/31/17 00:26 Hypochromasia Not Reportable 07/31/17 00:26 Poikilocytosis Not Reportable 07/31/17 00:26 Anisocytosis 1+ 07/31/17 00:26 Microcytosis Not Reportable 07/31/17 00:26 Macrocytosis Not Reportable 07/31/17 00:26 Spherocytes Not Reportable 07/31/17 00:26 Pappenheimer Bodies Not Reportable 07/31/17 00:26 Sickle Cells Not Reportable 07/31/17 00:26 Target Cells Not Reportable 07/31/17 00:26 Tear Drop Cells Not Reportable 07/31/17 00:26 Ovalocytes Not Reportable 07/31/17 00:26 Stomatocytes Rare 07/31/17 00:26 Helmet Cells Not Reportable 07/31/17 00:26 [place]con[place] Bodies Not Reportable 07/31/17 00:26 [place] Rings Not Reportable 07/31/17 00:26 [place] Cells Not Reportable 07/31/17 00:26 Bite Cells Not Reportable 07/31/17 00:26 Crenated Cell Not Reportable 07/31/17 00:26 Elliptocytes Not Reportable 07/31/17 00:26 Acanthocytes (Spur) Not Reportable 07/31/17 00:26 Rouleaux Not Reportable 07/31/17 00:26 Hemoglobin C Crystals Not Reportable 07/31/17 00:26 Schistocytes Not Reportable 07/31/17 00:26 Malaria parasites Not Reportable 07/31/17 00:26 Charlie Bodies Not Reportable 07/31/17 00:26 Hem Pathologist Commnt No 07/31/17 00:26 PT 13.6 Sec. (12.2-14.9) 07/31/17 00:26 INR 0.99 (0.87-1.13) 07/31/17 00: APTT 25.8 Sec. (24.2-36.6) 07/31/17 00:26 Sodium 141 mmol/L (137-145) 07/31/17 00:26 Potassium 4.0 mmol/L (3.6-5.0) 07/31/17: Chloride 106.1 mmol/L (98-107) 07/31/17: Carbon Dioxide 21 mmol/L (22-30) L 07/31/17 00: Anion Gap 18 mmol/L 07/31/17: BUN 48 mg/dL (9-20) H 07/31/17 00: Creatinine 1.0 mg/dL (0.8-1.5) 07/31/17 00: Estimated GFR > 60 ml/min 07/31/17 00: BUN/Creatinine Ratio 48 % 07/31/17: Glucose 132 mg/dL (75-100) H 07/31/17 00: Calcium 7.9 mg/dL (8.4-10.2) L 07/31/17 00: Total Bilirubin < 0.20 mg/dL (0.1-1.2) 07/31/17 00: AST 19 units/L (5-40) 07/31/17 00: ALT 24 units/L (7-56) 07/31/17 00: Alkaline Phosphatase 40 units/L (35-129) 07/31/17 00: Total Protein 5.7 g/dL (6.3-8.2) L 07/31/17 00:26 Albumin 3.2 g/dL (3.9-5) L 07/31/17 00: Albumin/Globulin Ratio 1.3 % 07/31/17: Lipase 18 units/L (13-60) 07/31/17 00:26 Blood Type O POSITIVE 07/31/17 00:28 Antibody Screen Negative 07/31/17 00:28 Assessment and Plan Assessment and plan: Upper GI bleed secondary to duodenal ulcer -Status post EGD with biopsy -start iv Protonix and d/c protonix drip per GI recommendation -H/H stable, will continue to monitor Hypertension -Stable Leukocytosis, probably reactive -Will monitor his WBC level -Will check ua Disposition: for discharge in a.m. if clinically stable 35 minutes spent in coordinating care
--- NOTE | 2017-07-31 13:09 | Post Anesthesia Evaluation ---
- Post Anesthesia Evaluation Patient Participated: Yes Airway Patent: Yes Stable Respiratory Function: Yes Nausea/Vomiting: No Temp > 96.8F: Yes Pain Manageable: Yes Adequeate Hydration: Yes Anesthesia Complications: No
[2017-07-31] MEDS: PERCOCET 5/325 PO PRN ×2 (15:45→22:46)
[2017-07-31] MEDS: PROTONIX IV SCH (22:47)
[2017-08-01 06:12] LABS: Bilirubin,Urine NEG (Negative); Blood,Urine NEG (Negative); Color,Urine Yellow (Yellow); Mucus,Urine FEW /HPF; Protein,Urine <15 mg/dL mg/dL (Negative); Urobilinogen,Urine < 2.0 mg/dL (<2.0)
[2017-08-01 06:55] LABS: Basophils # (Auto) 0.1 K/mm3 (0.0-0.1); Basophils % (Auto) 0.7 % (0.0-1.8); Eosinophils # (Auto) 0.3 K/mm3 (0.0-0.4); Eosinophils % (Auto) 2.4 % (0.0-4.3); Hematocrit 21.3 % (35.5-45.6); Hemoglobin 7.1 gm/dl (11.8-15.2); Lymphocytes # (Auto) 4.5 K/mm3 (1.2-5.4); Lymphocytes % (Auto) 39.8 % (13.4-35.0); Mean Corpuscular HGB Conc 33 % (32-34); Mean Corpuscular Hemoglobin 32 pg (28-32); Mean Corpuscular Volume 96 fl (84-94); Monocytes # (Auto) 0.7 K/mm3 (0.0-0.8); Monocytes % (Auto) 6.3 % (0.0-7.3); Platelet Count 183 K/mm3 (140-440); Red Blood Count 2.21 M/mm3 (3.65-5.03); Red Cell Distribution Width 15.8 % (13.2-15.2)
[2017-08-01] MEDS: PERCOCET 5/325 PO PRN ×2 (09:03→23:29)
[2017-08-01] MEDS: PROTONIX IV SCH (09:04)
--- NOTE | 2017-08-01 10:55 | Gastroenterology Progress Note ---
Assessment and Plan GI: noted PUD on egd w/ anemia - pt noted drop h/h overnight w/o obvious signs bleeding - continue PPI iv - would transfuse 2 prbc and follow h/h - start po - if stable in am ok to d/c from GI standpoint - will follow Subjective Date of service: 08/01/17 Interval history: - pt reports no complaints overnight Objective - Constitutional Vitals: Temp Pulse Resp BP Pulse Ox 98.6 F 81 16 109/58 96 08/01/17 04:00 08/01/17 04:49 08/01/17 04:00 08/01/17 04:00 08/01/17 04:00 General appearance: no acute distress - Respiratory Respiratory: bilateral: CTA - Gastrointestinal General gastrointestinal: Present: soft, non-tender - Labs CBC & Chem 7: 08/01/17 06:01 07/31/17 00:26 Labs: Laboratory Results - last 24 hr 07/31/17 08/01/17 08/01/17 00:28 05:53 06:01 WBC 11.3 H RBC 2.21 L Hgb 7.1 L Hct 21.3 L D MCV 96 H MCH 32 MCHC 33 RDW 15.8 H Plt Count 183 Lymph % (Auto) 39.8 H [place] % (Auto) 6.3 Eos % (Auto) 2.4 Baso % (Auto) 0.7 Lymph # 4.5 [place] # 0.7 Eos # 0.3 Baso # 0.1 Seg Neutrophils % 50.8 Seg Neutrophils # 5.8 Urine Color Yellow Urine Turbidity Clear Urine pH 5.0 Ur Specific [place] 1.019 Urine Protein <15 mg/dl Urine Glucose (UA) Neg Urine Ketones Neg Urine Blood Neg Urine Nitrite Neg Urine Bilirubin Neg Urine Urobilinogen < 2.0 Ur Leukocyte Esterase Neg Urine WBC (Auto) 1.0 Urine RBC (Auto) 3.0 U Epithel Cells (Auto) < 1.0 Urine Mucus Few Blood Type O POSITIVE Antibody Screen Negative Crossmatch See Detail
[2017-08-01] MEDS ORDERED: NACL 0.9% 500 ML 500 ML IV ONE (11:00)
--- NOTE | 2017-08-01 13:02 | Progress Note ---
Assessment and Plan Assessment and plan: Upper GI bleed secondary to duodenal ulcer -Status post EGD with biopsy -cont iv Protonix -H/H trended down, will transfuse patient with 1 unit of packed red blood cells and monitor H/H. Hypotension, present on admission -BP stable Leukocytosis, probably reactive -WBC level trended down -ua neg Disposition: for discharge in a.m if H/H remains stable History Interval history: Patient has no new complaints. He denies bleeding from any orifice Hospitalist Physical - Constitutional Vitals: Temp Pulse Resp BP Pulse Ox 98.6 F 81 16 109/58 96 08/01/17 04:00 08/01/17 04:49 08/01/17 04:00 08/01/17 04:00 08/01/17 04:00 General appearance: Present: no acute distress - EENT Eyes: Present: PERRL, EOM intact ENT: hearing intact - Neck Neck: Present: supple - Respiratory Respiratory effort: normal Respiratory: bilateral: CTA - Cardiovascular Rhythm: regular Heart Sounds: Present: S1 & S2 - Extremities Extremities: No edema - Abdominal General gastrointestinal: soft, non-tender, normal bowel sounds - Neurologic Neurologic: CNII-XII intact Results - Labs CBC & Chem 7: 08/01/17 06:01 07/31/17 00:26 Labs: Laboratory Last Values WBC 11.3 K/mm3 (4.5-11.0) H 08/01/17 06:01 RBC 2.21 M/mm3 (3.65-5.03) L 08/01/17 06:01 Hgb 7.1 gm/dl (11.8-15.2) L 08/01/17 06:01 Hct 21.3 % (35.5-45.6) L D 08/01/17 06:01 MCV 96 fl (84-94) H 08/01/17 06:01 MCH 32 pg (28-32) 08/01/17 06:01 MCHC 33 % (32-34) 08/01/17 06:01 RDW 15.8 % (13.2-15.2) H 08/01/17 06:01 Plt Count 183 K/mm3 (140-440) 08/01/17 06:01 Lymph % (Auto) 39.8 % (13.4-35.0) H 08/01/17 06:01 [place] % (Auto) 6.3 % (0.0-7.3) 08/01/17 06:01 Eos % (Auto) 2.4 % (0.0-4.3) 08/01/17 06:01 Baso % (Auto) 0.7 % (0.0-1.8) 08/01/17 06:01 Lymph # 4.5 K/mm3 (1.2-5.4) 08/01/17 06:01 [place] # 0.7 K/mm3 (0.0-0.8) 08/01/17 06:01 Eos # 0.3 K/mm3 (0.0-0.4) 08/01/17 06:01 Baso # 0.1 K/mm3 (0.0-0.1) 08/01/17 06:01 Add Manual Diff Complete 07/31/17 00:26 Total Counted 100 07/31/17 00:26 Seg Neutrophils % 50.8 % (40.0-70.0) 08/01/17 06:01 Seg Neuts % (Manual) 86.0 % (40.0-70.0) H 07/31/17 00:26 Band Neutrophils % 1.0 % 07/31/17 00:26 Lymphocytes % (Manual) 11.0 % (13.4-35.0) L 07/31/17 00:26 Reactive Lymphs % (Man) 0 % 07/31/17 00:26 Monocytes % (Manual) 0 % (0.0-7.3) 07/31/17 00:26 Eosinophils % (Manual) 2.0 % (0.0-4.3) 07/31/17 00:26 Basophils % (Manual) 0 % (0.0-1.8) 07/31/17 00:26 Metamyelocytes % 0 % 07/31/17 00:26 Myelocytes % 0 % 07/31/17 00:26 Promyelocytes % 0 % 07/31/17 00:26 Blast Cells % 0 % 07/31/17 00:26 Nucleated RBC % Not Reportable 07/31/17 00:26 Seg Neutrophils # 5.8 K/mm3 (1.8-7.7) 08/01/17 06:01 Seg Neutrophils # Man 13.0 K/mm3 (1.8-7.7) H 07/31/17 00:26 Band Neutrophils # 0.2 K/mm3 07/31/17 00:26 Lymphocytes # (Manual) 1.7 K/mm3 (1.2-5.4) 07/31/17 00:26 Abs React Lymphs (Man) 0.0 K/mm3 07/31/17 00:26 Monocytes # (Manual) 0.0 K/mm3 (0.0-0.8) 07/31/17 00:26 Eosinophils # (Manual) 0.3 K/mm3 (0.0-0.4) 07/31/17 00:26 Basophils # (Manual) 0.0 K/mm3 (0.0-0.1) 07/31/17 00:26 Metamyelocytes # 0.0 K/mm3 07/31/17 00:26 Myelocytes # 0.0 K/mm3 07/31/17 00:26 Promyelocytes # 0.0 K/mm3 07/31/17 00:26 Blast Cells # 0.0 K/mm3 07/31/17 00:26 WBC Morphology Not Reportable 07/31/17 00:26 Hypersegmented Neuts Not Reportable 07/31/17 00:26 Hyposegmented Neuts Not Reportable 07/31/17 00:26 Hypogranular Neuts Not Reportable 07/31/17 00:26 Smudge Cells Not Reportable 07/31/17 00:26 Toxic Granulation Not Reportable 07/31/17 00:26 Toxic Vacuolation Not Reportable 07/31/17 00:26 Dohle Bodies Not Reportable 07/31/17 00:26 Pelger-Huet Anomaly Not Reportable 07/31/17 00:26 Marty Rods Not Reportable 07/31/17 00:26 Platelet Estimate Appears normal 07/31/17 00:26 Clumped Platelets Not Reportable 07/31/17 00:26 Plt Clumps, EDTA Not Reportable 07/31/17 00:26 Large Platelets Not Reportable 07/31/17 00:26 Giant Platelets Not Reportable 07/31/17 00:26 Platelet Satelliting Not Reportable 07/31/17 00:26 Plt Morphology Comment Not Reportable 07/31/17 00:26 RBC Morphology Not Reportable 07/31/17 00:26 Dimorphic RBCs Not Reportable 07/31/17 00:26 Polychromasia Not Reportable 07/31/17 00:26 Hypochromasia Not Reportable 07/31/17 00:26 Poikilocytosis Not Reportable 07/31/17 00:26 Anisocytosis 1+ 07/31/17 00:26 Microcytosis Not Reportable 07/31/17 00:26 Macrocytosis Not Reportable 07/31/17 00:26 Spherocytes Not Reportable 07/31/17 00:26 Pappenheimer Bodies Not Reportable 07/31/17 00:26 Sickle Cells Not Reportable 07/31/17 00:26 Target Cells Not Reportable 07/31/17 00:26 Tear Drop Cells Not Reportable 07/31/17 00:26 Ovalocytes Not Reportable 07/31/17 00:26 Stomatocytes Rare 07/31/17 00:26 Helmet Cells Not Reportable 07/31/17 00:26 [place] Bodies Not Reportable 07/31/17 00:26 [place] Rings Not Reportable 07/31/17 00:26 [place] Cells Not Reportable 07/31/17 00:26 Bite Cells Not Reportable 07/31/17 00:26 Crenated Cell Not Reportable 07/31/17 00:26 Elliptocytes Not Reportable 07/31/17 00:26 Acanthocytes (Spur) Not Reportable 07/31/17 00:26 Rouleaux Not Reportable 07/31/17 00:26 Hemoglobin C Crystals Not Reportable 07/31/17 00:26 Schistocytes Not Reportable 07/31/17 00:26 Malaria parasites Not Reportable 07/31/17 00:26 Charlie Bodies Not Reportable 07/31/17 00:26 Hem Pathologist Commnt No 07/31/17 00:26 PT 13.6 Sec. (12.2-14.9) 07/31/17 00:26 INR 0.99 (0.87-1.13) 07/31/17 00:26 APTT 25.8 Sec. (24.2-36.6) 07/31/17 00:26 Sodium 141 mmol/L (137-145) 07/31/17 00:26 Potassium 4.0 mmol/L (3.6-5.0) 07/31/17 00:26 Chloride 106.1 mmol/L (98-107) 07/31/17 00:26 Carbon Dioxide 21 mmol/L (22-30) L 07/31/17 00:26 Anion Gap 18 mmol/L 07/31/17 00:26 BUN 48 mg/dL (9-20) H 07/31/17 00:26 Creatinine 1.0 mg/dL (0.8-1.5) 07/31/17 00:26 Estimated GFR > 60 ml/min 07/31/17 00:26 BUN/Creatinine Ratio 48 % 07/31/17 00:26 Glucose 132 mg/dL (75-100) H 07/31/17 00:26 Calcium 7.9 mg/dL (8.4-10.2) L 07/31/17 00:26 Total Bilirubin < 0.20 mg/dL (0.1-1.2) 07/31/17 00:26 AST 19 units/L (5-40) 07/31/17 00:26 ALT 24 units/L (7-56) 07/31/17 00:26 Alkaline Phosphatase 40 units/L (35-129) 07/31/17 00:26 Total Protein 5.7 g/dL (6.3-8.2) L 07/31/17 00:26 Albumin 3.2 g/dL (3.9-5) L 07/31/17 00:26 Albumin/Globulin Ratio 1.3 % 07/31/17 00:26 Lipase 18 units/L (13-60) 07/31/17 00:26 Urine Color Yellow (Yellow) 08/01/17 05:53 Urine Turbidity Clear (Clear) 08/01/17 05:53 Urine pH 5.0 (5.0-7.0) 08/01/17 05:53 Ur Specific [place] 1.019 (1.003-1.030) 08/01/17 05:53 Urine Protein <15 mg/dl mg/dL (Negative) 08/01/17 05:53 Urine Glucose (UA) Neg mg/dL (Negative) 08/01/17 05:53 Urine Ketones Neg mg/dL (Negative) 08/01/17 05:53 Urine Blood Neg (Negative) 08/01/17 05:53 Urine Nitrite Neg (Negative) 08/01/17 05:53 Urine Bilirubin Neg (Negative) 08/01/17 05:53 Urine Urobilinogen < 2.0 mg/dL (<2.0) 08/01/17 05:53 Ur Leukocyte Esterase Neg (Negative) 08/01/17 05:53 Urine WBC (Auto) 1.0 /HPF (0.0-6.0) 08/01/17 05:53 Urine RBC (Auto) 3.0 /HPF (0.0-6.0) 08/01/17 05:53 U Epithel Cells (Auto) < 1.0 /HPF (0-13.0) 08/01/17 05:53 Urine Mucus Few /HPF 08/01/17 05:53 Blood Type O POSITIVE 07/31/17 00:28 Antibody Screen Negative 07/31/17 00:28 Crossmatch See Detail 07/31/17 00:28
[2017-08-01] MEDS: PROTONIX PO SCH (22:10)
[2017-08-02] MEDS: PROTONIX PO SCH ×2 (08:27→09:49)
[2017-08-02] MEDS: PERCOCET 5/325 PO PRN ×2 (08:27→14:34)
[2017-08-02 08:51] VITALS: BP 123/67
--- NOTE | 2017-08-02 12:54 | Gastroenterology Progress Note ---
Assessment and Plan GI: stable overnight w/o further signs bleeding - awaiting h/h today - if stable h/h ok to d/c from GI standpoint on PPI qd - call if situation changes, will sign off Subjective Date of service: 08/02/17 Interval history: - no signs bleeding overnight. No GI complaints Objective - Constitutional Vitals: Temp Pulse Resp BP Pulse Ox 98.0 F 74 19 123/67 96 08/02/17 08:05 08/02/17 09:46 08/02/17 03:36 08/02/17 08:03 08/02/17 08:03 General appearance: no acute distress - Respiratory Respiratory: bilateral: CTA - Cardiovascular Rhythm: regular Heart Sounds: Present: S1 & S2 - Gastrointestinal General gastrointestinal: Present: soft, non-tender, non-distended - Labs CBC & Chem 7: 08/01/17 06:01 07/31/17 00:26 Labs: Laboratory Results - last 24 hr 07/31/17 00:28 Blood Type O POSITIVE Antibody Screen Negative Crossmatch See Detail
[2017-08-02 13:14] LABS: Hematocrit 24.3 % (35.5-45.6); Hemoglobin 8.3 gm/dl (11.8-15.2); Mean Corpuscular HGB Conc 34 % (32-34); Mean Corpuscular Hemoglobin 32 pg (28-32); Mean Corpuscular Volume 95 fl (84-94); Platelet Count 200 K/mm3 (140-440); Red Blood Count 2.57 M/mm3 (3.65-5.03); Red Cell Distribution Width 16.4 % (13.2-15.2)
--- NOTE | 2017-08-02 14:04 | Discharge Summary ---
Providers - Providers Date of Admission: 07/31/17 02:24 Date of discharge: 08/02/17 Attending physician: KEE KEY 07/31/17 02:21 Consult to Physician [CONS] Stat Comment: Consulting Provider: ZHEN JOSÉ Physician Instructions: advice to admit to hospitalist and keep and NPO Reason For Exam: GI bleed 07/31/17 02:56 Consult to Physician [CONS] Routine Comment: Consulting Provider: VIRGIL FLEMING Physician Instructions: Reason For Exam: CCU Primary care physician: JASPREET PADILLA Hospitalization Reason for admission: please see the H&P note Condition: Stable Procedures: EGD with biopsy Hospital course: Admission diagnoses: -Upper GI bleed -Hypotension -Leukocytosis Final diagnoses: -Upper GI bleed secondary to duodenal ulcers -Hypotension, resolved -Leukocytosis, likely reactive (resolved) The patient was admitted and placed on an IV Protonix drip. He also received IV fluid for the hypotension with improvement of his blood pressure Thereafter, he underwent EGD which showed duodenal bulb ulcers. Post procedure, his H and H trended down to 7.1/21.3, for which he was transfused with one unit of packed red blood cells without any adverse reactions. His post transfusion H&H improved to 8.3/24.3. He was then deemed stable for discharge with clinic follow-up after clearance by the wash worker. Of note, his leukocytosis resolved without any treatment. Disposition: - TO HOME OR SELFCARE Time spent for discharge: 35 minutes Core Measure Documentation - Palliative Care Palliative Care/ Comfort Measures: Not Applicable - Core Measures Any of the following diagnoses?: none Exam - Constitutional Vitals: Temp Pulse Resp BP Pulse Ox 98.0 F 74 19 123/67 96 08/02/17 08:05 08/02/17 09:46 08/02/17 03:36 08/02/17 08:03 08/02/17 08:03 General appearance: Present: no acute distress, well-nourished - EENT Eyes: Present: PERRL, EOM intact ENT: hearing intact, clear oral mucosa - Neck Neck: Present: supple, normal ROM - Respiratory Respiratory effort: normal Respiratory: bilateral: CTA - Cardiovascular Rhythm: regular Heart Sounds: Present: S1 & S2. Absent: rub, click - Extremities Extremities: pulses symmetrical, No edema Peripheral Pulses: within normal limits - Abdominal General gastrointestinal: Present: soft, non-tender, non-distended, normal bowel sounds - Integumentary Integumentary: Present: clear, warm, dry - Musculoskeletal Musculoskeletal: gait normal, strength equal bilaterally - Psychiatric Psychiatric: appropriate mood/affect, intact judgment & insight - Neurologic Neurologic: CNII-XII intact, moves all extremities Plan Follow up with: JASPREET PADILLA MD [Primary Care Provider] - 3-5 Days (Monitor patient's H /H) Forms: Accompanied Note Prescriptions: Pantoprazole [Protonix TAB] 40 mg PO BID #60 tablet
== END 2017-08-02 15:15 | disposition home or self-care (01) | DRG 378 ==
LOC: ED 23:59 → CC1 07-31 02:24 → 4A 07-31 17:38
PROVIDERS: ADMIT Internal Medicine; ATTEND Internal Medicine
PROC: 30233N1 Transfusion of Nonautologous Red Blood Cells into Peripheral Vein, Percutaneous Approach (ICD-10-PCS; principal; 2017-08-01)
PROC: 0DB68ZX Excision of Stomach, Via Natural or Artificial Opening Endoscopic, Diagnostic (ICD-10-PCS; 2017-08-01)
DX: K26.0 Acute duodenal ulcer with hemorrhage (principal); Z68.42 Body mass index [BMI] 45.0-49.9, adult; I95.89 Other hypotension; E66.9 Obesity, unspecified; I10 Essential (primary) hypertension; K21.9 Gastro-esophageal reflux disease without esophagitis; M19.90 Unspecified osteoarthritis, unspecified site; Z95.5 Presence of coronary angioplasty implant and graft; Z87.891 Personal history of nicotine dependence; Z82.49 Family history of ischemic heart disease and other diseases of the circulatory system
CPT/HCPCS: 36415; 80053; 81001; 83690; 85007; 85025; 85027; 85610; 85730; 86850; 86900; 86901; 86920; 87086; 88305; 88342; 93005; 93010; 96361; 96374; 96375; 99291; C9113; J2405; J2704; J7030; P9016